=== PATIENT | male | born 1955 | race Caucasian/White ===

== ENCOUNTER 2023-08-11 00:30 | Inpatient (IN) | payer MEDICARE, MEDICAID ==
[2023-08-11] VITALS (14 sets, daily range): BP systolic 130–163; BP diastolic 64–115; PULSE 100–118; RESP 14–26; TEMP 97.2–98.4; O2SAT 92–98
[~2023-08-11] VITALS: Ht 182.9 cm; Wt 121.0 kg
[2023-08-11] MEDS ORDERED: BRIM5DRO6 LEFTEYE (00:53)
[2023-08-11] MEDS ORDERED: DORZ10DR26 LEFTEYE (00:53)
[2023-08-11] MEDS ORDERED: magnesium 4gm in 100ml NS 100 ML IV PRN (02:00)
[2023-08-11] MEDS ORDERED: potassium Cl 20 mEq SR tablet PO PRN ×2 (02:00)
[2023-08-11] MEDS ORDERED: mag hydrox/Alum hydrox/simeth 30ml oral suspension PO PRN (02:00)
[2023-08-11] MEDS ORDERED: ondansetron/PF 4mg/2ml inj IV PRN (02:00)
[2023-08-11] MEDS ORDERED: magnesium Cl slow-release 64mg tablet PO PRN (02:00)
[2023-08-11] MEDS ORDERED: acetaminophen 325mg tablet PO PRN (02:00)
[2023-08-11] MEDS ORDERED: magnesium hydroxide 30ml (MOM) UD suspension PO PRN (02:00)
[2023-08-11] MEDS ORDERED: potassium Cl 40MEQ/1/2NS 520ml 520 ML IV PRN (02:00)
[2023-08-11] MEDS ORDERED: magnesium 2GM in 50ml NS 50 ML IV PRN (02:00)
[2023-08-11] MEDS ORDERED: ipratropium/albuterol 3ml nebule NEB PRN (02:00)
[2023-08-11] MEDS: methylPREDNISolone sod succ 125mg/2ml vial IV ONE (02:25)
[2023-08-11 03:36] LABS: MAGNESIUM 1.9 MG/DL (1.5-2.4); PHOSPHORUS 2.9 MG/DL (2.3-4.5)
[2023-08-11] MEDS ORDERED: ARGI500T4 PO (05:07)
[2023-08-11] MEDS ORDERED: potassium chloride PO (05:07)
[2023-08-11] MEDS ORDERED: ASPI-1139 (05:07)
[2023-08-11] MEDS: budesonide 0.5mg/2ml UD nebule IH SCH (07:15)
[2023-08-11] MEDS: ipratropium/albuterol 3ml nebule NEB SCH (07:15)
[2023-08-11] MEDS: K and/or MAG REPLACEMENT MC SCH (08:00)
[2023-08-11] MEDS: amLODIPine 5mg tablet PO ONE (08:38)
[2023-08-11] MEDS: azithromycin/NS 500mg/250ml 250 ML IV SCH (08:40)
[2023-08-11] MEDS: CefTRIAXone/D5W-Rocephin 1gm 50 ML IV SCH (08:40)
[2023-08-11] MEDS: methylPREDNISolone sod succ 125mg/2ml vial IV SCH (13:39)
[2023-08-11 13:53] LABS: BASOPHILS % (AUTO) 0.3 % (0-1); EOSINOPHILS % (AUTO) 0 % (0-6); HEMATOCRIT 50.7 % (42.0-52.0); HEMOGLOBIN 16.8 g/dl (14.0-17.9); LYMPHOCYTES # (AUTO) 0.9 X10'3 (1.1-4.8); LYMPHOCYTES % (AUTO) 5.7 % (21-51); MEAN CORPUSCULAR HEMOGLOBIN 29.6 PG (27.0-31.0); MEAN CORPUSCULAR HGB CONC 33.2 g/dL (33.0-36.5); MEAN CORPUSCULAR VOLUME 89.1 FL (78-98); MEAN PLATELET VOLUME 8.5 FL (7.4-10.4); MONOCYTES # (AUTO) 0.4 X10'3 (0-0.9); MONOCYTES % (AUTO) 2.4 % (2-12); NEUTROPHILS # (AUTO) 15.3 X10'3 (1.8-7.7); NEUTROPHILS % (AUTO) 91.6 % (42-75); PLATELET COUNT 254 X10'3 (140-440); RED BLOOD COUNT 5.69 X10'6 (4.70-6.10); RED CELL DISTRIBUTION WIDTH 15.2 % (11.5-14.5); WHITE BLOOD COUNT 16.7 X10'3 (4.5-11.0)
[2023-08-11] MEDS ORDERED: hydrALAZINE 20mg/ml inj. IV PRN (14:05)
[2023-08-11 14:06] LABS: ALANINE AMINOTRANSFERASE 11 U/L (12-78); ALBUMIN/GLOBULIN RATIO 0.8 (1.1-1.5); ALKALINE PHOSPHATASE 93 IU/L (46-116); ANION GAP 9 (8-16); ASPARTATE AMINO TRANSFERASE 7 U/L (10-37); BILIRUBIN,TOTAL 0.5 MG/DL (0.1-1.0); BLOOD UREA NITROGEN 26 MG/DL (7-18); BUN/CREATININE RATIO 24.3 (10.0-20.0); CALCIUM 8.7 MG/DL (8.5-10.1); CHLORIDE 108 MMOL/L (99-107); CREATININE 1.07 MG/DL (0.60-1.10); GLUCOSE 155 MG/DL (70-104); PHOSPHORUS 2.1 MG/DL (2.3-4.5); POTASSIUM 4.1 MMOL/L (3.5-5.1); SODIUM 142 MMOL/L (135-145); TOTAL CARBON DIOXIDE 25.1 MMOL/L (24-32); eCRCL 75 ML/MIN; eGFR 69 ML/MIN
[2023-08-11] MEDS: brimonidine 0.2% 5 ML ophthalmic drops LEFTEYE SCH (20:20)
[2023-08-11] MEDS: dorzolamide 2% ophthalmic drops 10ml LEFTEYE SCH (20:25)
[2023-08-12] VITALS (8 sets, daily range): BP systolic 104–148; BP diastolic 51–93; PULSE 105–122; RESP 16–27; TEMP 98–100.4; O2SAT 92–97
[2023-08-12 07:54] LABS: BASOPHILS % (AUTO) 0.1 % (0-1); EOSINOPHILS % (AUTO) 0 % (0-6); HEMATOCRIT 46.9 % (42.0-52.0); HEMOGLOBIN 15.6 g/dl (14.0-17.9); MEAN CORPUSCULAR HEMOGLOBIN 29.5 PG (27.0-31.0); MEAN CORPUSCULAR HGB CONC 33.2 g/dL (33.0-36.5); MEAN CORPUSCULAR VOLUME 88.9 FL (78-98); MEAN PLATELET VOLUME 8.7 FL (7.4-10.4); MONOCYTES # (AUTO) 0.6 X10'3 (0-0.9); MONOCYTES % (AUTO) 2.6 % (2-12); NEUTROPHILS # (AUTO) 23.2 X10'3 (1.8-7.7); NEUTROPHILS % (AUTO) 93.3 % (42-75); PLATELET COUNT 253 X10'3 (140-440); RED BLOOD COUNT 5.27 X10'6 (4.70-6.10); RED CELL DISTRIBUTION WIDTH 14.8 % (11.5-14.5); WHITE BLOOD COUNT 24.9 X10'3 (4.5-11.0)
[2023-08-12] MEDS ORDERED: ARGININE PO SCH (08:00)
[2023-08-12 08:08] LABS: ALANINE AMINOTRANSFERASE 9 U/L (12-78); ALBUMIN 2.8 G/DL (3.4-5.0); ALBUMIN/GLOBULIN RATIO 0.8 (1.1-1.5); ALKALINE PHOSPHATASE 79 IU/L (46-116); ANION GAP 8 (8-16); ASPARTATE AMINO TRANSFERASE 5 U/L (10-37); BILIRUBIN,TOTAL 0.5 MG/DL (0.1-1.0); BLOOD UREA NITROGEN 23 MG/DL (7-18); BUN/CREATININE RATIO 21.7 (10.0-20.0); CALCIUM 8.7 MG/DL (8.5-10.1); CHLORIDE 109 MMOL/L (99-107); CREATININE 1.06 MG/DL (0.60-1.10); GLUCOSE 182 MG/DL (70-104); MAGNESIUM 1.9 MG/DL (1.5-2.4); PHOSPHORUS 3.4 MG/DL (2.3-4.5); POTASSIUM 3.9 MMOL/L (3.5-5.1); SODIUM 141 MMOL/L (135-145); TOTAL CARBON DIOXIDE 24.4 MMOL/L (24-32); TOTAL PROTEIN 6.4 G/DL (6.4-8.2); eCRCL 75 ML/MIN; eGFR 70 ML/MIN
[2023-08-12] MEDS: methylPREDNISolone sod succ 125mg/2ml vial IV SCH (19:54)
[2023-08-13] MEDS: Melatonin 3mg tablet PO PRN (00:32)
[2023-08-13 02:00] VITALS: BP 155/89; PULSE 96; RESP 16; TEMP 98.1; O2SAT 92
[2023-08-13 06:00] VITALS: BP 152/90; PULSE 99; RESP 16; TEMP 98.5; O2SAT 98
[2023-08-13 07:19] LABS: BASOPHILS # (AUTO) 0.1 X10'3 (0-0.2); BASOPHILS % (AUTO) 0.2 % (0-1); EOSINOPHILS % (AUTO) 0.1 % (0-6); HEMATOCRIT 46.4 % (42.0-52.0); HEMOGLOBIN 15.4 g/dl (14.0-17.9); LYMPHOCYTES # (AUTO) 3.5 X10'3 (1.1-4.8); LYMPHOCYTES % (AUTO) 12.8 % (21-51); MEAN CORPUSCULAR HEMOGLOBIN 29.7 PG (27.0-31.0); MEAN CORPUSCULAR HGB CONC 33.2 g/dL (33.0-36.5); MEAN CORPUSCULAR VOLUME 89.3 FL (78-98); MEAN PLATELET VOLUME 8.5 FL (7.4-10.4); MONOCYTES # (AUTO) 1.8 X10'3 (0-0.9); MONOCYTES % (AUTO) 6.7 % (2-12); NEUTROPHILS # (AUTO) 22.1 X10'3 (1.8-7.7); NEUTROPHILS % (AUTO) 80.2 % (42-75); PLATELET COUNT 232 X10'3 (140-440)
[2023-08-13 07:25] LABS: WHITE BLOOD COUNT 27.5 X10'3 (4.5-11.0)
[2023-08-13 07:36] LABS: ALANINE AMINOTRANSFERASE 15 U/L (12-78); ALBUMIN 2.7 G/DL (3.4-5.0); ALBUMIN/GLOBULIN RATIO 0.8 (1.1-1.5); ALKALINE PHOSPHATASE 69 IU/L (46-116); ANION GAP 7 (8-16); ASPARTATE AMINO TRANSFERASE 10 U/L (10-37); BILIRUBIN,TOTAL 0.7 MG/DL (0.1-1.0); BLOOD UREA NITROGEN 23 MG/DL (7-18); BUN/CREATININE RATIO 23.5 (10.0-20.0); CALCIUM 8.1 MG/DL (8.5-10.1); CHLORIDE 107 MMOL/L (99-107); CREATININE 0.98 MG/DL (0.60-1.10); GLUCOSE 91 MG/DL (70-104); MAGNESIUM 1.9 MG/DL (1.5-2.4); PHOSPHORUS 3.2 MG/DL (2.3-4.5); POTASSIUM 3.7 MMOL/L (3.5-5.1); SODIUM 140 MMOL/L (135-145); TOTAL CARBON DIOXIDE 26.2 MMOL/L (24-32); eCRCL 81 ML/MIN; eGFR 77 ML/MIN
[2023-08-13 08:00] VITALS: RESP 16; O2SAT 98
[2023-08-13 08:01] LABS: PLATELET ESTIMATE NORMAL; TOTAL CELLS COUNTED 100
[2023-08-13 11:00] VITALS: BP 145/84; PULSE 106; RESP 20; TEMP 98.3; O2SAT 94
[2023-08-13] MEDS ORDERED: LACT1CAP26 PO (13:28)
[2023-08-13] MEDS ORDERED: ALBU18HF2 INH (13:28)
[2023-08-13] MEDS ORDERED: ADV50100 INH (13:28)
[2023-08-13] MEDS ORDERED: CEFD300C3 PO (13:28)
[2023-08-14 08:10] LABS: HBSAG SCREEN Negative (Negative); HEP B CORE AB, IGM Negative (Negative); HEP B CORE AB, TOT Negative (Negative)
== END 2023-08-13 14:50 | disposition home or self-care (01) | DRG 871 ==
LOC: ER 00:31 → EDBD 00:31 → ED HOLD 02:05 → PCU 3S 04:32
PROVIDERS: ADMIT Student in an Organized Health Care Education/Training Program; ATTEND Family Medicine
DX: A41.9 Sepsis, unspecified organism (principal); J18.9 Pneumonia, unspecified organism; J96.01 Acute respiratory failure with hypoxia; R04.2 Hemoptysis; K21.9 Gastro-esophageal reflux disease without esophagitis; Z20.822 Contact with and (suspected) exposure to COVID-19; J40 Bronchitis, not specified as acute or chronic; Z87.891 Personal history of nicotine dependence
CPT/HCPCS: 36415; 71045; 80053; 83605; 83735; 84100; 84145; 85007; 85025; 86704; 86705; 87040; 87081; 87340; 93306; 94640; 94760; 99285; A6258; G0378; J0456; J0696; J2930; J7030; J7040